=== PATIENT | male | born 2000 | race Caucasian/White ===

== ENCOUNTER 2019-11-11 13:57 | Emergency (ER) | payer SELFPAY ==
--- NOTE | 2019-11-11 14:47 | EDM.PDOCBH ---
ED HPI GENERAL MEDICAL PROBLEM - General Chief Complaint: Behavioral/Psych Stated Complaint: POSSIBLE OVERDOSE Time Seen by Provider: 11/11/19 14:30 Source of Information: Reports: Patient, Family History Limitations: Reports: No Limitations - History of Present Illness INITIAL COMMENTS - FREE TEXT/NARRATIVE: 19-year-old male comes into the emergency room to be checked out because of fatigue, this is after he intentionally overdosed on Ativan last evening. He did not have any alcohol, he was feeling depressed at the time but today has no suicidal or self-harm intentions. He is accompanied by his brother, they are both "homeless" at the time and things are going well for them. He was discussing his fatigue today with I believe his girlfriend's mother and she encouraged him to come in to be seen. He is physically stable and emotionally is feeling better, he has no self harm feelings today. Associated Symptoms: Reports: Other (Only symptom is persistent fatigue) - Related Data Allergies Allergy/AdvReac Type Severity Reaction Status Date / Time No Known Allergies Allergy Verified 11/11/19 14:17 Home Meds: Home Meds NK [No Known Home Meds] 11/11/19 [History] Past Medical History Neurological History: Reports: Head Trauma Psychiatric History: Reports: Anxiety, Depression Dermatologic History: Reports: Other (See Below) Other Dermatologic History: staph infections Social & Family History - Tobacco Use Smoking Status *Q: Current Every Day Smoker Years of Tobacco use: 5 Packs/Tins Daily: 1 - Recreational Drug Use Recreational Drug Type: Reports: Marijuana/Hashish Recreational Drug Use Frequency: Weekly ED ROS GENERAL - Review of Systems Review Of Systems: See Below Constitutional: Denies: Fever, Chills HEENT: Reports: No Symptoms Respiratory: Denies: Shortness of Breath Cardiovascular: Denies: Chest Pain GI/Abdominal: Denies: Nausea, Vomiting Skin: Reports: Other (Some bruising on his neck bilaterally from "hickeys") ED EXAM, BEHAVIORAL HEALTH - Physical Exam Exam: See Below Exam Limited By: No Limitations General Appearance: Alert, No Apparent Distress Eye Exam: Bilateral Eye: Normal Inspection Head: Atraumatic Neck: Other (Normal other than superficial bruising bilaterally from recent "hickeys") Respiratory/Chest: No Respiratory Distress, Lungs Clear Cardiovascular: Regular Rate, Rhythm Neurological: Alert, Normal Mood/Affect Psychiatric: Alert, Normal Affect. No: Depressed Mood, Flat Affect, Tearful COURSE, BEHAVIORAL HEALTH COMP - Course Vital Signs: Last Vital Signs Temp 96.7 F L 11/11/19 14:30 Pulse 85 11/11/19 14:30 Resp 16 11/11/19 14:30 BP 139/86 11/11/19 14:30 Pulse Ox 97 11/11/19 14:30 Re-Assessment/Re-Exam: No work-up is necessary, patient is stable and was released with his brother who will keep an eye on him for the next couple of days and ensure follow-up. Departure - Departure Time of Disposition: 15:15 Disposition: Home, Self-Care 01 Clinical Impression: Depressive disorder - Discharge Information Instructions: Suicidal Feelings: How to Help Yourself Referrals: PCP,Chuck [Primary Care Provider] - Forms: ED Department Discharge Care Plan Goals: Continue your other 2 prescribed medications as directed. Recheck next week if you feel you are worsening or develop other concerns. Sepsis Event Note - Evaluation Sepsis Screening Result: No Definite Risk - Focused Exam Date Exam was Performed: 11/12/19 Time Exam was Performed: 07:33
== END 2019-11-11 15:16 | disposition home or self-care (01) ==
LOC: JP.ED 13:57
DX: F32.9 Major depressive disorder, single episode, unspecified (principal); F17.210 Nicotine dependence, cigarettes, uncomplicated
CPT/HCPCS: 99283

== ENCOUNTER 2020-02-08 20:24 | Emergency (ER) | payer SELFPAY ==
--- NOTE | 2020-02-08 21:13 | EDM.PDOC ---
ED HPI GENERAL MEDICAL PROBLEM - General Chief Complaint: Abdominal Pain Stated Complaint: ABD PAIN,THROWING UP BLOOD Time Seen by Provider: 02/08/20 21:02 Source of Information: Reports: Patient History Limitations: Reports: No Limitations - History of Present Illness INITIAL COMMENTS - FREE TEXT/NARRATIVE: Patient presents tonight describing intermittent, recent symptoms of abdominal pain as well as vomiting blood. He has had this going on for some time. He has a history of heavy alcohol intake although he has cut back substantially in the last week. 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 When he awoke the next morning he noticed emesis near him and it was red in color, he describes it as being bright red although he does not recall vomiting during the night. He is certain it was not bloody stool. He cut back his drinking over the ensuing week quite a bit but not to 0. Tonight, he was eating in a local restaurant and after taking some food and swallowing it he later had a sudden surge in abdominal pain and went outside the restaurant and vomited. He thought that there was some blood in that material and at his girlfriend's insistence, he came here for evaluation. After vomiting, he felt substantially better and at this time, arrival here, he did not have any abdominal pain. He has had other times where he has vomited what he describes as blood. He denies any black or bloody stools. No unusual bleeding or bruising. No testicle or perineal discomfort. He has not taken anything for times where he has had abdominal pain or the vomiting. There are other family members who have significant alcoholic histories. He himself because of drinking as a teenager, was placed on pro bation for several years before being discharged from the program on his 19st birthday. He has no medical insurance at this time and is here only at the insistence of his girlfriend. Onset: Sudden, Gradual Duration: Week(s):, Intermittent, Waxing/Waning Location: Reports: Abdomen Quality: Reports: Burning (When he has pain, pain is absent at this time.) Severity: Moderate (When symptoms are active.) Improves with: Reports: None Worsens with: Reports: Eating, Other (Alcohol intake) Associated Symptoms: Reports: No Other Symptoms denies Pain Score (Numeric/FACES): 0 - Related Data Allergies Allergy/AdvReac Type Severity Reaction Status Date / Time No Known Allergies Allergy Verified 02/08/20 20:37 Home Meds: Home Meds NK [No Known Home Meds] 11/11/19 [History] Past Medical History HEENT History: Reports: Hard of Hearing Musculoskeletal History: Reports: Fracture Other Musculoskeletal History: foot Neurological History: Reports: Head Trauma Psychiatric History: Reports: Anxiety, Depression, Other (See Below) Other Psychiatric History: Past heavy ahcohol use Dermatologic History: Reports: Other (See Below) Other Dermatologic History: staph infections - Infectious Disease History Infectious Disease History: Reports: MRSA Social & Family History - Tobacco Use Smoking Status *Q: Former Smoker Years of Tobacco use: 7 Packs/Tins Daily: 0.5 Used Tobacco, but Quit: Yes Month/Year Tobacco Last Used: 11/2019 Second Hand Smoke Exposure: No - Caffeine Use Caffeine Use: Reports: Energy Drinks - Alcohol Use Days Per Week of Alcohol Use: 0 - Recreational Drug Use Recreational Drug Use: Yes Drug Use in Last 12 Months: Yes Recreational Drug Type: Reports: Marijuana/Hashish Recreational Drug Use Frequency: Not Used In Over 2 Months ED ROS GENERAL - Review of Systems Review Of Systems: See Below Constitutional: Reports: Weight Gain (He believes that he is 20 pounds disintegrator than he was several months ago but has not purposely been trying to lose weig ht.) HEENT: Reports: No Symptoms Respiratory: Reports: No Symptoms Cardiovascular: Reports: No Symptoms GI/Abdominal: Reports: Abdominal Pain (Epigastric and periumbilical when it occurs.), Hematochezia (Perhaps), Nausea, Vomiting. Denies: Black Stool, Bloody Stool, Difficulty Swallowing, Melena : Reports: No Symptoms Musculoskeletal: Reports: No Symptoms, Back Pain (Intermittent persistent back pain from a previous injury.) Hematologic/Lymphatic: Reports: No Symptoms ED EXAM, GI/ABD - Physical Exam Exam: See Below Text/Narrative:: Patient is seated semiupright on the cart in room 6. He is an extensive historian but moderately hard of hearing. Exam Limited By: No Limitations General Appearance: Alert, No Apparent Distress Respiratory/Chest: No Respiratory Distress Cardiovascular: Regular Rate, Rhythm GI/Abdominal Exam: Normal Bowel Sounds, Soft, Non-Tender, No Distention, No Mass. No: Guarding, Hepatomegaly, Splenomegaly Back Exam: Normal Inspection Course - Vital Signs Last Recorded V/S: Last Vital Signs Temp 36.6 C 02/08/20 20:49 Pulse 84 02/08/20 20:49 Resp 16 02/08/20 20:49 BP 141/77 H 02/08/20 20:49 Pulse Ox 98 02/08/20 20:49 - Re-Assessments/Exams Free Text/Narrative Re-Assessment/Exam: 02/08/20 23:25 His exam is not concerning at this time but his history certainly is. He is aware that he needs to not drink but he has succeeded only in cutting back, not eliminating alcohol completely. Because he lacks insurance, he is not interested in [place] and other similar work-up tonight. I recommend that he use 1 of the H2 blockers for a month. He wanted to know how much that would cost and I could not give him a dollar estimate but I said that it was probably similar to the amount of money he spends on alcohol in a week, to which he smiled sheepishly. I frankly discussed that if he continues to drink in his current manner and is vomiting blood he will have a significant chance of getting very ill and/or dying at a young age. Only he can make the choice to stop drinking and he knows that. He was sent with a prescription for famotidine 20 mg, 60 tablets to be taken regularly until gone. He should get a bottle of liquid antacid and if he is having new burning pain in the stomach, he should use that as a "fire extinguisher." If still feeling symptomatic despite the famotidine, he will need to follow-up with primary care somewhere and may eventually require upper GI endoscopy. Reasons to return to emergency department reviewed. 02/08/20 23:27 Departure - Departure Time of Disposition: 21:37 Disposition: Home, Self-Care 01 Clinical Impression: Gastritis Qualifiers: Gastritis type: alcoholic Chronicity: acute Gastritis bleeding: without bleeding Qualified Code(s): K29.20 - Alcoholic gastritis without bleeding Alcohol dependence Qualifiers: Substance use status: unspecified alcohol-induced disorder Qualified Code(s): F10.29 - Alcohol dependence with unspecified alcohol-induced disorder - Discharge Information Instructions: Gastritis, Adult, [id number] Referrals: PCP,None [Primary Care Provider] - Forms: ED Department Discharge Additional Instructions: Start Pepcid (famotidine) 20 mg twice a day and take it every day for 1 month. If you have any sudden onset stomach burning symptoms, use Maalox or similar liquid antacid and drink a couple tablespoons of it to settle down the fire. I recommend no alcohol intake of any kind because it is already damaging your stom ach and digestive system. If you are vomiting blood or pooping out blood, return to emergency department. Sepsis Event Note (ED) - Evaluation Sepsis Screening Result: No Definite Risk - Focused Exam Vital Signs: Vital Signs Temp Pulse Resp BP Pulse Ox 02/08/20 20:49 36.6 C 84 16 141/77 H 98 02/08/20 20:35 36.6 C 84 16 141/77 H 98
== END 2020-02-08 21:46 | disposition home or self-care (01) ==
LOC: JP.ED 20:24
DX: K29.00 Acute gastritis without bleeding (principal); F10.29 Alcohol dependence with unspecified alcohol-induced disorder; Z87.891 Personal history of nicotine dependence
CPT/HCPCS: 99282; 99283

== ENCOUNTER 2020-03-06 14:38 | Emergency (ER) | payer SELFPAY ==
--- NOTE | 2020-03-06 16:20 | EDM.PDOC ---
ED HPI GENERAL MEDICAL PROBLEM - General Chief Complaint: General Stated Complaint: HEADACHE,VOMITING Time Seen by Provider: 03/06/20 16:18 Source of Information: Reports: Patient History Limitations: Reports: No Limitations - History of Present Illness Onset: Today, Other (Had repeated vomiting Wednesday morning and this morning ) Duration: Day(s): (3) Quality: Reports: Other (Denies any pain other than mild headacheDenies any pain other than mild headache) Associated Symptoms: Reports: Nausea/Vomiting - Related Data Allergies Allergy/AdvReac Type Severity Reaction Status Date / Time No Known Allergies Allergy Verified 02/08/20 20:37 Home Meds: Home Meds NK [No Known Home Meds] 11/11/19 [History] Past Medical History HEENT History: Reports: Hard of Hearing Musculoskeletal History: Reports: Fracture Other Musculoskeletal History: foot Neurological History: Reports: Head Trauma Psychiatric History: Reports: Anxiety, Depression, Other (See Below) Other Psychiatric History: Past heavy ahcohol use Dermatologic History: Reports: Other (See Below) Other Dermatologic History: staph infections - Infectious Disease History Infectious Disease History: Reports: MRSA Social & Family History - Tobacco Use Smoking Status *Q: Former Smoker Years of Tobacco use: 3 Used Tobacco, but Quit: Yes Month/Year Tobacco Last Used: january 2020 - Caffeine Use Caffeine Use: Reports: Soda - Recreational Drug Use Recreational Drug Use: No ED ROS GENERAL - Review of Systems Review Of Systems: See Below Constitutional: Reports: Fatigue. Denies: Fever Cardiovascular: Reports: No Symptoms GI/Abdominal: Reports: Anorexia, Decreased Appetite, Vomiting. Denies: Abdominal Pain, Constipation, Difficulty Swallowing, Distension ED EXAM, GENERAL - Physical Exam Exam: See Below Exam Limited By: No Limitations Nose: Normal Inspection Throat/Mouth: Normal Inspection Head: Atraumatic Neck: Normal Inspection Respiratory/Chest: No Respiratory Distress Cardiovascular: Normal Peripheral Pulses GI/Abdominal: Normal Bowel Sounds, Soft, Non-Tender, No Mass Back Exam: Normal Inspection Extremities: Normal Inspection, Normal Range of Motion Neurological: Alert, Oriented, Normal Cognition Course - Vital Signs Text/Narrative:: Abdominal x-ray shows normal bowel gas pattern. Laboratory studies including kidney and liver function are normal except for slight elevation of bilirubin. CBC is normal. I discussed with the patient the fact that THC accumulating in the body can contribute to recurrent nausea and vomiting . Last Recorded V/S: Last Vital Signs Temp 36.5 C 03/06/20 14:55 Pulse 52 L 03/06/20 14:55 Resp 16 03/06/20 14:55 BP 133/77 03/06/20 14:55 Pulse Ox 97 03/06/20 14:55 - Orders/Labs/Meds Orders: Active Orders 24 hr Category Date Time Status Abdomen 1V Flat [CR] Stat Exams 03/06/20 16:31 Taken Labs: Laboratory Tests 03/06/20 03/06/20 03/06/20 Range/Units 16:39 16:39 16:39 WBC 7.2 (4.5-11.0) K/uL RBC 5.24 (4.30-5.90) M/uL Hgb 15.1 H (12.0-15.0) g/dL Hct 46.3 (40.0-54.0) % MCV 88 (80-98) fL MCH 29 (27-31) pg MCHC 33 (32-36) % Plt Count 286 (150-400) K/uL Sodium 141 (140-148) mmol/L Potassium 4.0 (3.6-5.2) mmol/L Chloride 106 (100-108) mmol/L Carbon Dioxide 26 (21-32) mmol/L Anion Gap 8.6 (5.0-14.0) mmol/L BUN 17 (7-18) mg/dL Creatinine 1.1 (0.8-1.3) mg/dL Est Cr Clr Drug Dosing 109.68 mL/min Estimated GFR (MDRD) > 60 (>60) Glucose 88 (74-106) mg/dL Lactic Acid (0.4-2.0) mmol/L Calcium 9.0 (8.5-10.1) mg/dL Total Bilirubin 1.7 H (0.2-1.0) mg/dL AST 14 L (15-37) U/L ALT 16 (12-78) U/L Alkaline Phosphatase 90 (46-116) U/L Total Protein 7.7 (6.4-8.2) g/dL Albumin 4.4 (3.4-5.0) g/dL Globulin 3.3 (2.3-3.5) g/dL Albumin/Globulin Ratio 1.3 (1.2-2.2) Lipase 95 (73-393) U/L Urine Color (YELLOW) Urine Appearance (CLEAR) Urine pH (5.0-8.0) Ur Specific [place] (1.008-1.030) Urine Protein (NEGATIVE) mg/dL Urine Glucose (UA) (NEGATIVE) mg/dL Urine Ketones (NEGATIVE) mg/dL Urine Occult Blood (NEGATIVE) Urine Nitrite (NEGATIVE) Urine Bilirubin (NEGATIVE) Urine Urobilinogen (0.2-1.0) EU/dL Ur Leukocyte Esterase (NEGATIVE) Urine RBC (0-5) Urine WBC (0-5) Ur Epithelial Cells Amorphous Sediment Urine Bacteria Urine Mucus Urine Opiates Screen (NEGATIVE) Ur Oxycodone Screen (NEGATIVE) Urine Methadone Screen (NEGATIVE) Ur Propoxyphene Screen (NEGATIVE) Ur Barbiturates Screen (NEGATIVE) Ur Tricyclics Screen (NEGATIVE) Ur Phencyclidine Scrn (NEGATIVE) Ur Amphetamine Screen (NEGATIVE) U Methamphetamines Scrn (NEGATIVE) Urine MDMA Screen (NEGATIVE) U Benzodiazepines Scrn (NEGATIVE) U Cocaine Metab Screen (NEGATIVE) U Marijuana (THC) Screen (NEGATIVE) 03/06/20 03/06/20 03/06/20 Range/Units 16:39 17:40 17:40 WBC (4.5-11.0) K/uL RBC (4.30-5.90) M/uL Hgb (12.0-15.0) g/dL Hct (40.0-54.0) % MCV (80-98) fL MCH (27-31) pg MCHC (32-36) % Plt Count (150-400) K/uL Sodium (140-148) mmol/L Potassium (3.6-5.2) mmol/L Chloride (100-108) mmol/L Carbon Dioxide (21-32) mmol/L Anion Gap (5.0-14.0) mmol/L BUN (7-18) mg/dL Creatinine (0.8-1.3) mg/dL Est Cr Clr Drug Dosing mL/min Estimated GFR (MDRD) (>60) Glucose (74-106) mg/dL Lactic Acid 0.8 (0.4-2.0) mmol/L Calcium (8.5-10.1) mg/dL Total Bilirubin (0.2-1.0) mg/dL AST (15-37) U/L ALT (12-78) U/L Alkaline Phosphatase (46-116) U/L Total Protein (6.4-8.2) g/dL Albumin (3.4-5.0) g/dL Globulin (2.3-3.5) g/dL Albumin/Globulin Ratio (1.2-2.2) Lipase (73-393) U/L Urine Color Yellow (YELLOW) Urine Appearance Clear (CLEAR) Urine pH 6.5 (5.0-8.0) Ur Specific [place] >= 1.030 (1.008-1.030) Urine Protein Negative (NEGATIVE) mg/dL Urine Glucose (UA) Negative (NEGATIVE) mg/dL Urine Ketones Negative (NEGATIVE) mg/dL Urine Occult Blood Negative (NEGATIVE) Urine Nitrite Negative (NEGATIVE) Urine Bilirubin Negative (NEGATIVE) Urine Urobilinogen 0.2 (0.2-1.0) EU/dL Ur Leukocyte Esterase Trace H (NEGATIVE) Urine RBC Not seen (0-5) Urine WBC Not seen (0-5) Ur Epithelial Cells Not seen Amorphous Sediment Few Urine Bacteria Not seen Urine Mucus Not seen Urine Opiates Screen Negative (NEGATIVE) Ur Oxycodone Screen Negative (NEGATIVE) Urine Methadone Screen Negative (NEGATIVE) Ur Propoxyphene Screen Negative (NEGATIVE) Ur Barbiturates Screen Negative (NEGATIVE) Ur Tricyclics Screen Negative (NEGATIVE) Ur Phencyclidine Scrn Negative (NEGATIVE) Ur Amphetamine Screen Negative (NEGATIVE) U Methamphetamines Scrn Negative (NEGATIVE) Urine MDMA Screen Negative (NEGATIVE) U Benzodiazepines Scrn Negative (NEGATIVE) U Cocaine Metab Screen Negative (NEGATIVE) U Marijuana (THC) Screen Presumptive positive H (NEGATIVE) Departure - Departure Time of Disposition: 18:13 Disposition: Home, Self-Care 01 Condition: Good Clinical Impression: Recurrent vomiting - Discharge Information Referrals: PCP,None [Primary Care Provider] - Forms: ED Department Discharge Additional Instructions: Try to eat 3 regular meals per day. Utilize Zofran in the morning when you first wake up to try to prevent nausea and vomiting. Sepsis Event Note (ED) - Evaluation Sepsis Screening Result: No Definite Risk - Focused Exam Vital Signs: Vital Signs Temp Pulse Resp BP Pulse Ox 03/06/20 14:55 36.5 C 52 L 16 133/77 97 - My Orders Last 24 Hours: My Active Orders 03/06/20 16:31 Abdomen 1V Flat [CR] Stat - Assessment/Plan Last 24 Hours: My Active Orders 03/06/20 16:31 Abdomen 1V Flat [CR] Stat
--- NOTE | 2020-03-07 10:05 | CR ---
Abdomen 1V Flat CLINICAL HISTORY: Recurrent vomiting FINDINGS: Small intestinal configuration is nonacute. There is gas and feces throughout the colon. No definite urinary calculi are seen IMPRESSION: Nonacute intestinal gas pattern
== END 2020-03-06 18:35 | disposition home or self-care (01) ==
LOC: JP.ED 14:38
DX: R11.10 Vomiting, unspecified (principal); Z87.891 Personal history of nicotine dependence
CPT/HCPCS: 36415; 74018; 74018-26; 80053; 80305-QW; 81001; 83605; 83690; 85027; 99283; 99284-25

== ENCOUNTER 2024-01-19 00:28 | Emergency (ER) | payer SELFPAY ==
[2024-01-19 01:55] LABS: BASOPHILS ABSOLUTE AUTO 0.04 K/uL (0.00-0.10); BASOPHILS PERCENT AUTO 0.5 % (0.1-1.3); EOSINOPHILS ABSOLUTE AUTO 0.21 K/uL (0.00-0.40); EOSINOPHILS PERCENT AUTO 2.5 % (0.0-5.4); HEMATOCRIT 40.3 % (38.4-49.7); HEMOGLOBIN 14.4 g/dL (12.9-16.9); IMMATURE GRAN ABSOLUTE AUTO 0.02 K/uL (0.00-0.23); IMMATURE GRAN PERCENT AUTO 0.2 % (0.0-0.7); LYMPHOCYTES ABSOLUTE AUTO 1.86 K/uL (0.8-3.3); LYMPHOCYTES PERCENT AUTO 21.8 % (11.4-47.7); MEAN CORPUSCULAR HEMOGLOBIN 29.9 pg (31.6-35.5); MEAN CORPUSCULAR HGB CONC 35.7 g/dL (31.6-35.5); MEAN CORPUSCULAR VOLUME 83.8 fL (81.4-99.0); MONOCYTES ABSOLUTE AUTO 0.64 K/uL (0.20-0.90); MONOCYTES PERCENT AUTO 7.5 % (3.3-12.6); NEUTROPHILS ABSOLUTE AUTO 5.77 K/uL (1.0-7.6); NEUTROPHILS PERCENT AUTO 67.5 % (40.0-78.1); PLATELET COUNT,PLT 248 K/uL (130-375); RED BLOOD CELL COUNT 4.81 M/uL (4.14-5.76); WHITE BLOOD CELL COUNT,WBC 8.5 K/uL (3.2-11.0)
[2024-01-19] MEDS: Lidocaine 1% with EPINEPHrine 1:100,000 20 ML MDV INJECT ONE (02:59)
[2024-01-19] MEDS: Acetaminophen 500 MG Tab PO ONE (03:20)
[2024-01-19] MEDS: Bacitracin Oint 1 GM U/D Packet TOP ONE (03:47)
[2024-01-19] MEDS: Diphtheria,Pertussis(Acell),Tetanus Vaccine 0.5 ML Syringe IM ONE (03:49)
== END 2024-01-19 03:55 | disposition home or self-care (01) ==
LOC: JP.ED 00:28
DX: S01.111A Laceration without foreign body of right eyelid and periocular area, initial encounter (principal); Z23 Encounter for immunization; Z86.16 Personal history of COVID-19; Z87.891 Personal history of nicotine dependence; Y04.8XXA Assault by other bodily force, initial encounter
CPT/HCPCS: 12013; 36415; 70486; 85025; 90471; 90715; 99284; A9270